=== PATIENT | male | born 1975 | race Caucasian/White ===

== ENCOUNTER 2016-03-18 18:33 | Emergency (ER) | payer SELFPAY ==
[2016-03-18 19:35] VITALS: TEMP 98.3; BMI 23.2
--- NOTE | 2016-03-18 20:13 | DIRPT ---
CLINICAL DATA: Fall out of tree today from 15 foot height. Low back injury and pain. Initial encounter. EXAM: LUMBAR SPINE - COMPLETE 4+ VIEW COMPARISON: None. FINDINGS: There is no evidence of lumbar spine fracture. Alignment is normal. Intervertebral disc spaces are maintained. No other bone lesions identified. IMPRESSION: Negative lumbar spine radiographs. Electronically Signed By: Marcos Rose M.D. On: 03/18/2016 20:11
[2016-03-18] MEDS ORDERED: HYDROmorphone 1 MG INJECTION IM ONE (20:33)
--- NOTE | 2016-03-18 20:36 | EDPRACDOC ---
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 NO OTHER INJURIES REPORTED. DENIES HEAD/NECK INJURY, LOC, CP, SHOB, ABD PAIN, INCONTINENCE. Pain Location: Reports: Lumbar Pain Radiates To: Reports: None Pain Caused By: Reports: Fall Circumstances: Reports: Work-related Relevant History: Reports: None Pain Severity: Reports: Severe Pain Quality: Reports: Sharp, Stabbing Worsened By: Reports: Movement Associated Signs and Symptoms: Reports: None ED Past Medical History - History Reviewed Yes Nurses notes reviewed and agree except as marked - Patient Medical History Psychological History: Denies: Depression Systemic History: Denies: Cancer - Social Medical History Smoking Status: Heavy tobacco smoker (5 or more cigarettes/day or daily pipe/ cigar) EDM Review of Systems - Review of Systems ROS Negative Except as Marked: Yes All systems reviewed and were negative except as marked Constitutional: No Symptoms Reported Respiratory: No Symptoms Reported Cardiovascular: No Symptoms Reported Gastrointestinal: No Symptoms Reported Genitourinary: No Symptoms Reported Neurological: No Symptoms Reported Musculoskeletal: Back Integumentary: No Symptoms Reported - Physical Exam Constitutional: Alert (Awake), No apparent distress Oriented to: Time, Person, Place Last recorded Vital Signs: Last Vital Signs Temp 98.3 F 03/18/16 19:32 Pulse 53 L 03/18/16 20:17 Resp 18 03/18/16 20:17 BP 147/58 L 03/18/16 20:17 Pulse Ox 96 03/18/16 20:17 Oxygen Pulse Oxygen Saturation 96 O2 Device Room Air Oxygen Flow Rate Fraction of Inspired Oxygen ( FIO2) - HEENT Head: Normal Eye Exam: Normal Neck: Normal, Denies Pain, Midline - Respiratory/Cardiovascular Respiratory: Normal - CTA Cardiovascular: Normal - GI Palpation: Normal Tenderness: Non tender - Musculoskeletal Back: Lumbar TTP, No Palpable Step-off Extremities: Normal - Integumentary Skin: Normal Lymphatics: Normal - Neurologic Cerebellar: Normal Mood Description: Normal Thought: Coherent Perception: Normal ED Back Exam - Neurologic Motor Deficit: None - Musculoskeletal Cervical: Normal Thoracic: Normal Lumbar: Tender Midline: Tender Paraspinous: Tender Pelvis: Normal Decision Time to Discharge: 20:34 - Departure Disposition: Home Condition: Good Final Diagnosis: Acute low back pain Instructions: Acute Low Back Pain (ED) Education/Counseling Given To: Patient Education/Counseling Given Regarding: Diagnosis, Treatment, Follow Up Referrals: None,No Provider [Primary Care Provider] - One Week LUIS CARLOS ESPINOSA [NonStaff] - One Week Elliot Olivas MD [Staff Physician] - One Week Brian Hermosillo MD [Staff Physician] - One Week Prescriptions: Oxycodone Immediate Release [Oxycodone Immediate Release (OxyIR)] 5 mg PO Q6H PRN #20 tab PRN Reason: Pain Forms: Excuse Note Additional Instructions: REST AND NO LIFTING. IF SYMPTOMS PERSIST, FOLLOW UP WITH PCP REGARDING NEED FOR OUTPATIENT MRI.
[2016-03-18 20:53] VITALS: BP 151/67; PULSE 64
== END 2016-03-18 20:50 | disposition home or self-care (01) ==
LOC: ED 18:33 → EDMC 20:50
DX: M54.5 Low back pain (principal)
CPT/HCPCS: 72110; 96372; 99283; J1170